=== PATIENT | female | born 1975 | race American Indian/Alaskan Native ===

== ENCOUNTER 2016-10-16 23:20 | Emergency (ER) | payer MEDICARE ==
[2016-10-16 23:29] VITALS: BP 132/88
== END 2016-10-17 04:55 | disposition home or self-care (01) ==
LOC: ED 23:20
DX: R21 Rash and other nonspecific skin eruption (principal)
CPT/HCPCS: 99282

== ENCOUNTER 2017-06-25 23:32 | Emergency (ER) | payer MEDICARE ==
[2017-06-26 04:23] LABS: Bilirubin,Urine NEG (Negative); Blood,Urine NEG (Negative); Color,Urine Yellow (Yellow); Nitrite,Urine NEG (Negative); Protein,Urine <15 mg/dL mg/dL (Negative); Urobilinogen,Urine < 2.0 mg/dL (<2.0); WBC,Urine < 1.0 /HPF (0.0-6.0)
[2017-06-26 04:27] LABS: HCG Qualitative,Urine Negative (Negative)
[2017-06-26] MEDS ORDERED: TYLENOL/CODEINE PO ONE (04:50)
--- NOTE | 2017-06-26 04:59 | Emergency Department Report ---
HPI - General Chief Complaint: Upper Respiratory Infection Time Seen by Provider: 06/26/17 04:25 - HPI HPI: She is a 42-year-old female presents to the ED complaining of intermittent try, nonproductive cough and times one day. Patient denies feverchills/nausea vomiting. Patient also states she noticed some bites on her arms and so some bedbugs in her bed earlier this morning. Patient also states that she has had a mild dysuria, she denies vaginal bleeding, vaginal discharge. ED Past Medical Hx - Past Medical History Previous Medical History?: No - Surgical History Past Surgical History?: No - Social History Smoking Status: Never Smoker Substance Use Type: None - Medications Home Medications: Home Medications Medication Instructions Recorded Confirmed Last Taken Type Benzonatate [Tessalon Perles] 100 mg PO Q8HR #20 capsule 06/26/17 Unknown Rx Diphenhydramine HCl/Zinc Acet 1 applic TP TID #1 tube 06/26/17 Unknown Rx [Benadryl Itch Stopping Crm] diphenhydrAMINE [Benadryl CAP] 25 mg PO QHS PRN #20 capsule 06/26/17 Unknown Rx guaiFENesin [Robitussin] 200 mg PO Q6HR #80 ml 06/26/17 Unknown Rx ED Review of Systems ROS: Stated complaint: URI SX Other details as noted in HPI Constitutional: denies: chills, fever Eyes: denies: eye pain, eye discharge, vision change ENT: denies: ear pain, throat pain Respiratory: denies: cough, shortness of breath, wheezing Cardiovascular: denies: chest pain, palpitations Endocrine: no symptoms reported Gastrointestinal: denies: abdominal pain, nausea, diarrhea Genitourinary: denies: urgency, dysuria, discharge Musculoskeletal: denies: back pain, joint swelling, arthralgia Skin: denies: rash, lesions Neurological: denies: headache, weakness, paresthesias Psychiatric: denies: anxiety, depression Hematological/Lymphatic: denies: easy bleeding, easy bruising Physical Exam - Physical Exam Vital Signs: Vital Signs 06/26/17 00:36 Temperature 99.2 F Pulse Rate 85 Respiratory 20 Rate Blood Pressure 156/108 O2 Sat by Pulse 100 Oximetry Physical Exam: GENERAL: Alert and oriented x3, no apparent distress, Normal Gait, atraumatic. EARS: symetrical, atraumatic, non tender, ear canal clear and moderate cerumen, tympanic membrance non inflamed. gross auditory nml bilaterally. NOSE: Nose symetrical, Nontender,Nares appeared normal. MOUTH:Mouth is well hydrated and without lesions. Tonsils nonerythematous or swollen, Uvula midline, Tongue not elevated. Mucous membranes are moist. Posterior pharynx clear, no exudate or lesions. Patent airways. NECK: Supple. Non edematous, No lymphadenopathy or thyromegaly. No C-spine tenderness LUNGS: Symetrical with respiration, No wheezing, no rales or crackles, CTAB. HEART: S1, S2 present, regular rate and rhythm without murmur, no rubs, no gallops. Non tender to palpation NEUROLOGIC: The patient is cooperative with no focal neurologic deficits. Normal speech. Normal sensation in bilateral upper and lower extremities, No loss of sensation, SKIN: Warm and dry, 2-3, pinpoint, generalized, erythematous lesions on right arm ,No other lesions, No ulceration or induration present. ED Course Vital Signs 06/26/17 00:36 Temperature 99.2 F Pulse Rate 85 Respiratory 20 Rate Blood Pressure 156/108 O2 Sat by Pulse 100 Oximetry ED Medical Decision Making - Medical Decision Making 42-year-old female presents to bronchitis and bed bug bites ED course: Patient received Tylenol with Codeine to help with coughing. Urinalysis was negative. I discussed this findings with the patient. I discussed the patient wash all sheets and clothes. I discussed with the patient to follow up with primary care physician. I also discussed with the patient to return back to the ED if any worsening symptoms or new symptoms arise. Vital signs are normal. Patient had no difference in the ED. She is in no acute or respiratory distress. Critical care attestation.: If time is entered above; I have spent that time in minutes in the direct care of this critically ill patient, excluding procedure time. ED Disposition Clinical Impression: Bronchitis Bed bug bite Qualifiers: Encounter type: initial encounter Qualified Code(s): W57.XXXA - Bitten or stung by nonvenomous insect and other nonvenomous arthropods, initial encounter Disposition: - TO HOME OR SELFCARE Is pt being admited?: No Does the pt Need Aspirin: No Condition: Stable Instructions: Insect Bite or Sting (ED), Chronic Bronchitis (ED) Additional Instructions: Make sure to follow up with the primary care physician as discussed. Take all your medications as you've been prescribed. If you have any worsening symptoms or develop new symptoms please return to ED immediately. Wash all sheets with warm water. Prescriptions: diphenhydrAMINE [Benadryl CAP] 25 mg PO QHS PRN #20 capsule PRN Reason: Itching Benzonatate [Tessalon Perles] 100 mg PO Q8HR #20 capsule Diphenhydramine HCl/Zinc Acet [Benadryl Itch Stopping Crm] 1 applic TP TID #1 tube guaiFENesin [Robitussin] 200 mg PO Q6HR #80 ml Referrals: PRIMARY CARE, [Primary Care Provider] - 3-5 Days Forms: Work/School Release Form(ED) Time of Disposition: 05:41
[2017-06-26 06:19] VITALS: BP 145/99
== END 2017-06-26 06:17 | disposition home or self-care (01) ==
LOC: ED 23:32
DX: J40 Bronchitis, not specified as acute or chronic (principal); S40.861A Insect bite (nonvenomous) of right upper arm, initial encounter; S40.862A Insect bite (nonvenomous) of left upper arm, initial encounter; W57.XXXA Bitten or stung by nonvenomous insect and other nonvenomous arthropods, initial encounter; Y93.89 Activity, other specified; Y92.89 Other specified places as the place of occurrence of the external cause; Y99.8 Other external cause status
CPT/HCPCS: 81001; 81025; 99283

== ENCOUNTER 2017-07-17 00:10 | Emergency (ER) | payer MEDICARE ==
[2017-07-17 01:16] VITALS: BP 173/103
[2017-07-17] MEDS ORDERED: MOTRIN PO ONE (10:15)
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
== END 2017-07-17 10:34 | disposition home or self-care (01) ==
LOC: ED 00:10
DX: S39.012A Strain of muscle, fascia and tendon of lower back, initial encounter (principal); V49.59XA Passenger injured in collision with other motor vehicles in traffic accident, initial encounter; Y93.89 Activity, other specified; Y92.89 Other specified places as the place of occurrence of the external cause; Y99.8 Other external cause status
CPT/HCPCS: 99282

== ENCOUNTER 2020-05-16 15:17 | Emergency (ER) | payer MEDICARE ==
[2020-05-16 15:30] VITALS: BP 138/68
--- NOTE | 2020-05-16 16:57 | Emergency Department Report ---
ED Fall HPI - General Chief Complaint: Fall Stated Complaint: SLIP INJURY PAIN Time Seen by Provider: 05/16/20 16:50 Source: patient Mode of arrival: Ambulatory - History of Present Illness Initial Comments: Patient is a 44-year-old female presents emergency room after a slip and fall that occurred earlier today. She is complaining of neck pain and lower back pain. She denies any loss of consciousness, hitting her head, vision changes, numbness, weakness, bowel or bladder incontinence. She denies any past medical history. No allergies to medications. She states her last menstrual cycle was last week. - Related Data Previous Rx's Medication Instructions Recorded Last Taken Type Benzonatate [Tessalon Perles] 100 mg PO Q8HR #20 capsule 06/26/17 Unknown Rx Diphenhydramine HCl/Zinc Acet 1 applic TP TID #1 tube 06/26/17 Unknown Rx [Benadryl Itch Stopping Crm] diphenhydrAMINE [Benadryl CAP] 25 mg PO QHS PRN #20 capsule 06/26/17 Unknown Rx guaiFENesin [Robitussin] 200 mg PO Q6HR #80 ml 06/26/17 Unknown Rx Cyclobenzaprine [Flexeril] 10 mg PO QHS PRN #7 tablet 07/17/17 Unknown Rx Ibuprofen [Motrin] 600 mg PO Q8H PRN #30 tablet 07/17/17 Unknown Rx Naproxen [EC-Naproxen] 500 mg PO BID PRN #14 tablet. 05/16/20 Unknown Rx Allergies Allergy/AdvReac Type Severity Reaction Status Date / Time No Known Allergies Allergy Verified 12/29/15 12:44 ED Review of Systems ROS: Stated complaint: SLIP INJURY PAIN Other details as noted in HPI Comment: All other systems reviewed and negative ED Past Medical Hx - Past Medical History Previous Medical History?: No - Surgical History Past Surgical History?: No - Social History Smoking Status: Never Smoker Substance Use Type: None - Medications Home Medications: Home Medications Medication Instructions Recorded Confirmed Last Taken Type Benzonatate [Tessalon Perles] 100 mg PO Q8HR #20 capsule 06/26/17 Unknown Rx Diphenhydramine HCl/Zinc Acet 1 applic TP TID #1 tube 06/26/17 Unknown Rx [Benadryl Itch Stopping Crm] diphenhydrAMINE [Benadryl CAP] 25 mg PO QHS PRN #20 capsule 06/26/17 Unknown Rx guaiFENesin [Robitussin] 200 mg PO Q6HR #80 ml 06/26/17 Unknown Rx Cyclobenzaprine [Flexeril] 10 mg PO QHS PRN #7 tablet 07/17/17 Unknown Rx Ibuprofen [Motrin] 600 mg PO Q8H PRN #30 tablet 07/17/17 Unknown Rx Naproxen [EC-Naproxen] 500 mg PO BID PRN #14 tablet. 05/16/20 Unknown Rx ED Physical Exam - General Limitations: No Limitations General appearance: alert, in no apparent distress - Head Head exam: Present: atraumatic, normocephalic - Eye Eye exam: Present: normal appearance - ENT ENT exam: Present: mucous membranes moist - Neck Neck exam: Present: normal inspection, tenderness (bilateral C-spine paraspinal muscular ttp, no midline C-spine ttp, no step offs, no deformities), full ROM - Respiratory Respiratory exam: Present: normal lung sounds bilaterally. Absent: respiratory distress, wheezes, rales, rhonchi, stridor, chest wall tenderness, accessory muscle use, decreased breath sounds, prolonged expiratory - Cardiovascular Cardiovascular Exam: Present: regular rate, normal rhythm, normal heart sounds. Absent: systolic murmur, diastolic murmur, rubs, gallop - Extremities Exam Extremities exam: Present: normal inspection, full ROM, normal capillary refill. Absent: tenderness, pedal edema, joint swelling, calf tenderness - Back Exam Back exam: Present: normal inspection, full ROM, paraspinal tenderness (bilateral lumbar paraspinal muscular ttp, no midline C-spine, T-spine or L- spine ttp, no step offs, no deformities). Absent: vertebral tenderness - Neurological Exam Neurological exam: Present: alert, oriented X3 - Psychiatric Psychiatric exam: Present: normal affect, normal mood - Skin Skin exam: Present: warm, dry, intact ED Course Vital Signs 05/16/20 15:21 Pulse Rate 90 Respiratory 20 Rate Blood Pressure 138/68 [Right] O2 Sat by Pulse 98 Oximetry ED Medical Decision Making - Radiology Data Radiology results: report reviewed Ordering Physician: JOSE NAZARIO Date of Service: 05/16/20 Procedure(s): XR spine lumbosacral 2-3V Accession Number(s): [id number] cc: JOSE NAZARIO Fluoro Time In Minutes: XR spine lumbosacral 2-3V INDICATION / CLINICAL INFORMATION: slip and fall, low back pain COMPARISON: None available. FINDINGS: BONES / JOINT(S): Lumbar spinal alignment is preserved. Vertebral body heights are intact. There is no acute fracture. Mild/moderate disc space height loss at L5-S1. There is moderate lower lumbar facet arthropathy. SOFT TISSUES: No significant abnormality. ADDITIONAL FINDINGS: None. IMPRESSION: Mild/moderate lower lumbar spondylosis, without acute process identified. Signer Name: Dolly Soto MD Signed: 05/16/2020 5:31 PM Workstation Name: [id number] Transcribed By: TROY Dictated By: DOLLY SOTO MD Electronically Authenticated By: DOLLY SOTO MD Signed Date/Time: 05/16/201730 DD/ 29 TD/TT: Ordering Physician: JOSE NAZARIO Date of Service: 05/16/20 Procedure(s): XR spine cervical 2-3V Accession Number(s): [id number] cc: JOSE NAZARIO Fluoro Time In Minutes: XR spine cervical 2-3V INDICATION / CLINICAL INFORMATION: slip and fall, neck pain COMPARISON: None available. FINDINGS: BONES / JOINT(S): There is severe disc space height loss and degenerative retrolisthesis of C5 on C6. Cervical spinal alignment is otherwise preserved. Other cervical spine disc spaces are largely preserved. There is at least moderate multilevel uncovertebral and facet joint degenerative changes throughout the cervical spine. No evidence of acute fracture. SOFT TISSUES: No significant abnormality. ADDITIONAL FINDINGS: None. IMPRESSION: Severe degenerative changes of C5-C6 without acute process identified. Signer Name: Dolly Soto MD Signed: 05/16/2020 5:22 PM Workstation Name: [id number] Transcribed By: TROY Dictated By: DOLLY SOTO MD Electronically Authenticated By: DOLLY SOTO MD Signed Date/Time: 05/16/201721 DD/ 20 TD/TT: - Medical Decision Making Patient is a 44-year-old female presents emergency room after a slip and fall that occurred earlier today. She is complaining of neck pain and lower back pain. She denies any loss of consciousness, hitting her head, vision changes, numbness, weakness, bowel or bladder incontinence. She denies any past medical history. No allergies to medications. She states her last menstrual cycle was last week. VSS. on exam:bilateral lumbar paraspinal muscular ttp, no midline C- spine, T-spine or L-spine ttp, no step offs, no deformities, bilateral C-spine paraspinal muscular ttp, no midline C-spine ttp, no step offs, no deformities, no focal neuro deficits. XR lumbar spine: Mild/moderate lower lumbar spondylosis, without acute process identified. XR c-spine: Severe degenerative changes of C5-C6 without acute process identified. Discussed all findings with patient and answered questions. Examination most consistent with a mild muscle strain. Patient has had no significant mechanism of trauma, do not suspect acute emergent traumatic injury. pt given prescription for naproxen. advised pt Please take medication as prescribed as needed. May use ice pack, heating pad, rest, Epson salt bath. Follow-up with your primary care doctor for reexamination. Return to emergency room for any new or worsening symptoms. - Differential Diagnosis Strain, sprain, fracture, dislocation, DDD, bulging disc, spondylosis Critical care attestation.: If time is entered above; I have spent that time in minutes in the direct care of this critically ill patient, excluding procedure time. ED Disposition Clinical Impression: Fall Qualifiers: Encounter type: initial encounter Qualified Code(s): W19.XXXA - Unspecified fall, initial encounter Cervical strain Qualifiers: Encounter type: initial encounter Qualified Code(s): S16.1XXA - Strain of muscle, fascia and tendon at neck level, initial encounter Lumbar strain Qualifiers: Encounter type: initial encounter Qualified Code(s): S39.012A - Strain of muscle, fascia and tendon of lower back, initial encounter Disposition: - TO HOME OR SELFCARE Is pt being admited?: No Does the pt Need Aspirin: No Condition: Stable Instructions: Lumbar Sprain, Muscle Strain, [id number] Additional Instructions: Please take medication as prescribed as needed. May use ice pack, heating pad, rest, Epson salt bath. Follow-up with your primary care doctor for reexamination. Return to emergency room for any new or worsening symptoms. Your x-ray shows no signs of fracture or dislocation, just shows arthritis which comes as we age, symptoms most likely related to muscle strain Prescriptions: Naproxen [EC-Naproxen] 500 mg PO BID PRN #14 tablet.dr SALDANA Reason: pain Referrals: KRYSTAL MARIA MD [Staff Physician] - 2-3 Days PRIMARY CARE, [Primary Care Provider] - 2-3 Days [facility] [Provider Group] - 2-3 Days Time of Disposition: 17:40 Print Language: ICELANDIC
--- NOTE | 2020-05-16 17:27 | XRay Report ---
XR spine cervical 2-3V INDICATION / CLINICAL INFORMATION: slip and fall, neck pain COMPARISON: None available. FINDINGS: BONES / JOINT(S): There is severe disc space height loss and degenerative retrolisthesis of C5 on C6. Cervical spinal alignment is otherwise preserved. Other cervical spine disc spaces are largely prese rved. There is at least moderate multilevel uncovertebral and facet joint degenerative changes throug hout the cervical spine. No evidence of acute fracture. SOFT TISSUES: No significant abnormality. ADDITIONAL FINDINGS: None. IMPRESSION: Severe degenerative changes of C5-C6 without acute process identified. Signer Name: Butch Soto MD Signed: 05/16/2020 5:22 PM Workstation Name: [id number]
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
[2020-05-16] MEDS ORDERED: IBUPROFEN 600 MG TAB PO ONE ×2 (18:02)
== END 2020-05-16 17:57 | disposition home or self-care (01) ==
LOC: ED 15:17
DX: S16.1XXA Strain of muscle, fascia and tendon at neck level, initial encounter (principal); S39.012A Strain of muscle, fascia and tendon of lower back, initial encounter; Z79.1 Long term (current) use of non-steroidal anti-inflammatories (NSAID); Z79.899 Other long term (current) drug therapy; W01.0XXA Fall on same level from slipping, tripping and stumbling without subsequent striking against object, initial encounter; Y93.89 Activity, other specified; Y92.89 Other specified places as the place of occurrence of the external cause; Y99.8 Other external cause status
CPT/HCPCS: 72040; 72100

== ENCOUNTER 2021-12-16 23:33 | Inpatient (IN) | payer OTHER, MEDICARE ==
[2021-12-17] MEDS ORDERED: SODIUM CHLORIDE 0.9% 1000 ML 1,000 ML IV ONE (07:57)
[2021-12-17] MEDS ORDERED: MORPHINE 4 MG/1 ML INJ IV ONE ×2 (07:57→10:20)
[2021-12-17] MEDS ORDERED: ONDANSETRON 4 MG/2 ML INJ IV ONE (07:57)
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
[2021-12-17 09:11] LABS: Basophils % (Auto) 0.7 % (0.0-1.8); Eosinophils % (Auto) 0.7 % (0.0-4.3); Hematocrit 36.3 % (30.3-42.9); Hemoglobin 12.5 gm/dl (10.1-14.3); Lymphocytes # (Auto) 1.9 K/mm3 (1.2-5.4); Mean Corpuscular HGB Conc 35 % (30-34); Mean Corpuscular Volume 90 fl (79-97); Monocytes # (Auto) 0.5 K/mm3 (0.0-0.8); Monocytes % (Auto) 9.9 % (0.0-7.3); Platelet Count 235 K/mm3 (140-440); Red Blood Count 4.04 M/mm3 (3.65-5.03); Red Cell Distribution Width 12.5 % (13.2-15.2)
[2021-12-17 09:20] LABS: INR 0.85 (0.87-1.13)
[2021-12-17 09:21] LABS: Partial Thromboplastin Time 33.4 Sec. (24.2-36.6)
[2021-12-17 09:55] LABS: Alanine Aminotransferase 29 units/L (7-56); Albumin 4.7 g/dL (3.9-5); BUN/Creatinine Ratio 14; Blood Urea Nitrogen 10 mg/dL (7-17); Calcium 10.3 mg/dL (8.4-10.2); Hemolysis Index 1
[2021-12-17 10:44] LABS: Bilirubin,Urine NEG (Negative); Blood,Urine SM (Negative); Color,Urine Straw (Yellow); Protein,Urine <15 mg/dL mg/dL (Negative); Urobilinogen,Urine < 2.0 mg/dL (<2.0)
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
--- NOTE | 2021-12-17 15:23 | Electrocardiograph Report ---
[facility] Test Date: 2021-12-17 Test Time: 10:57:58 Pat Name: SABINO MANNING Department: Room: Gender: F [employer]: TECH : 1975 Requested By: YOAV PARKER Order Number: [id number] Reading MD: Eduardo Pierce Measurements Intervals [place] Rate: 86 P: 25 NH: 136 QRS: -18 QRSD: 84 T: 31 QT: 352 QTc: 422 Interpretive Statements Sinus rhythm No previous ECG available for comparison Electronically Signed On 12-17-2021 15:23:13 EDT by Eduardo Pierce
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
[2021-12-17] MEDS ORDERED: oxyCODONE /ACETAMINOPHEN 5-325MG TAB PO PRN (18:35)
[2021-12-17] MEDS ORDERED: ONDANSETRON 4 MG/2 ML INJ IV PRN (18:35)
[2021-12-17] MEDS ORDERED: ACETAMINOPHEN 325 MG TAB PO PRN (18:35)
[2021-12-17] MEDS ORDERED: diphenhydrAMINE 25 MG CAP PO PRN (18:40)
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
[2021-12-17] MEDS: MORPHINE 2 MG/1 ML INJ IV PRN (21:22)
[2021-12-17] MEDS: guaiFENesin 100 MG/5 ML ORAL LIQD PO SCH ×2 (21:22→23:57)
[2021-12-17] MEDS ORDERED: HYDROmorphone 0.5 MG/0.5 ML INJ IV PRN (21:45)
[2021-12-18] MEDS: BENZONATATE 100 MG CAP PO SCH ×3 (05:46→21:43)
[2021-12-18] MEDS: guaiFENesin 100 MG/5 ML ORAL LIQD PO SCH ×4 (05:46→23:33)
[2021-12-18 06:26] LABS: Basophils % (Auto) 0.7 % (0.0-1.8); Eosinophils % (Auto) 0.9 % (0.0-4.3); Hematocrit 34.9 % (30.3-42.9); Hemoglobin 12.2 gm/dl (10.1-14.3); Lymphocytes # (Auto) 1.5 K/mm3 (1.2-5.4); Lymphocytes % (Auto) 40.1 % (13.4-35.0); Mean Corpuscular HGB Conc 35 % (30-34); Mean Corpuscular Volume 89 fl (79-97); Monocytes # (Auto) 0.4 K/mm3 (0.0-0.8); Monocytes % (Auto) 10.3 % (0.0-7.3); Platelet Count 244 K/mm3 (140-440); Red Blood Count 3.92 M/mm3 (3.65-5.03); Red Cell Distribution Width 12.4 % (13.2-15.2)
[2021-12-18 06:44] LABS: Alanine Aminotransferase 25 units/L (7-56); Blood Urea Nitrogen 10 mg/dL (7-17); Calcium 9.6 mg/dL (8.4-10.2); Hemolysis Index 1
[2021-12-18 06:48] LABS: BUN/Creatinine Ratio 14
--- NOTE | 2021-12-18 09:56 | Cat Scan Report ---
CT CHEST WITHOUT CONTRAST INDICATION / CLINICAL INFORMATION: Pneumothorax: Hemothorax and rib fractures. TECHNIQUE: Axial CT images were obtained through the chest without contrast. All CT scans at this [facility] are performed using CT dose reduction for ALARA by means of automated exposure control. COMPARISON: 12/17/2021 FINDINGS: HEART: No significant abnormality. CORONARY ARTERY CALCIFICATION: None. THORACIC AORTA: No significant abnormality. MEDIASTINUM / ADINA: No significant abnormality. PLEURA: There is slight increase in a right-sided hemothorax. Improved right-sided pneumothoraces as compared to previous CT. There is slight right-sided residual pneumothorax along the anterior lower a spect as well as the apical region. LUNGS: Subsegmental atelectasis is noted within the right middle lobe and lingula. There is increased atelectasis within the right lung base. ADDITIONAL FINDINGS: None. UPPER ABDOMEN: No significant abnormality. SKELETAL SYSTEM: Redemonstrated mild to moderate displaced fractures of the right second through sixt h ribs. IMPRESSION: 1. Slight increase in right-sided hemothorax as compared to previous CT. There is improved appearance of several trace right-sided pneumothoraces. No significant change in right-sided rib fractures. COMMUNICATION Time of Communication ([employer]/CDT): 8:30 AM Licensed Practitioner Receiving Report: Dr. Melchor Signer Name: Owen Briones DO Signed: 12/18/2021 9:51 AM Workstation Name: [id number]
--- NOTE | 2021-12-18 11:02 | Progress Note ---
Subjective Date of service: 12/18/21 Patient Reports: Positive: no new complaints, feels better, still having pain Objective Vital Signs - 12hr 12/17/21 12/18/21 12/18/21 23:05 00:00 00:54 Temperature 98.0 F Pulse Rate 76 86 Respiratory 16 Rate Blood Pressure 145/87 [Right] O2 Sat by Pulse 94 99 Oximetry 12/18/21 03:20 Temperature 98.1 F Pulse Rate 91 H Respiratory 18 Rate Blood Pressure 138/81 [Right] O2 Sat by Pulse 99 Oximetry - Labs 12/18/21 05:43 12/18/21 05:43 Diabetes panel 12/18/21 Range/Units 05:43 Sodium 140 (137-145) mmol/L Potassium 4.2 (3.6-5.0) mmol/L Chloride 102.2 (98-107) mmol/L Carbon Dioxide 27 (22-30) mmol/L BUN 10 (7-17) mg/dL Creatinine 0.7 (0.6-1.2) mg/dL Glucose 111 H (65-100) mg/dL Calcium 9.6 (8.4-10.2) mg/dL AST 27 (5-40) units/L ALT 25 (7-56) units/L Alkaline Phosphatase 76 (35-129) units/L Total Protein 8.1 (6.3-8.2) g/dL Albumin 4.0 (3.9-5) g/dL Calcium panel 12/18/21 Range/Units 05:43 Calcium 9.6 (8.4-10.2) mg/dL Albumin 4.0 (3.9-5) g/dL Pituitary panel 12/18/21 Range/Units 05:43 Sodium 140 (137-145) mmol/L Potassium 4.2 (3.6-5.0) mmol/L Chloride 102.2 (98-107) mmol/L Carbon Dioxide 27 (22-30) mmol/L BUN 10 (7-17) mg/dL Creatinine 0.7 (0.6-1.2) mg/dL Glucose 111 H (65-100) mg/dL Calcium 9.6 (8.4-10.2) mg/dL Adrenal panel 12/18/21 Range/Units 05:43 Sodium 140 (137-145) mmol/L Potassium 4.2 (3.6-5.0) mmol/L Chloride 102.2 (98-107) mmol/L Carbon Dioxide 27 (22-30) mmol/L BUN 10 (7-17) mg/dL Creatinine 0.7 (0.6-1.2) mg/dL Glucose 111 H (65-100) mg/dL Calcium 9.6 (8.4-10.2) mg/dL Total Bilirubin 0.40 (0.1-1.2) mg/dL AST 27 (5-40) units/L ALT 25 (7-56) units/L Alkaline Phosphatase 76 (35-129) units/L Total Protein 8.1 (6.3-8.2) g/dL Albumin 4.0 (3.9-5) g/dL
[2021-12-18] MEDS: oxyCODONE /ACETAMINOPHEN 5-325MG TAB PO PRN ×3 (11:05→22:16)
[2021-12-18] MEDS: CYCLOBENZAPRINE 10 MG TAB PO PRN (11:05)
--- NOTE | 2021-12-18 11:51 | XRay Report ---
XR Chest 3V INDICATION / CLINICAL INFORMATION: Right pneumothorax. COMPARISON: CT from 12/18/2021 FINDINGS: SUPPORT DEVICES: None. HEART /PULMONARY VASCULATURE: No significant abnormality. LUNGS / PLEURA: Small right basilar pleural fluid/hemothorax is unchanged. Trace right pneumothorax i s visualized on left lateral decubitus image, unchanged. Left lung remains clear. ADDITIONAL FINDINGS: No significant additional findings. IMPRESSION: Stable small right hemothorax and trace right pneumothorax. Signer Name: Butch Soto MD Signed: 12/18/2021 11:41 AM Workstation Name: [email or web address]
--- NOTE | 2021-12-18 19:50 | Progress Note ---
Assessment and Plan - Patient Problems (1) Pneumothorax on right Current Visit: Yes Status: Acute Plan to address problem: Surgery team consulted, submental oxygen, incentive spirometry, supportive care, (2) Obesity hypoventilation syndrome Current Visit: Yes Status: Acute Plan to address problem: Balanced diet, increase physical activity discharge, outpatient pulmonary follow-up for sleep study. (3) Multiple fractures of ribs Current Visit: Yes Status: Acute Qualifiers: Encounter type: initial encounter Fracture type: closed Laterality: right Qualified Code(s): S22.41XA - Multiple fractures of ribs, right side, initial encounter for closed fracture Plan to address problem: Pain control, supportive care. (4) DVT prophylaxis Current Visit: Yes Status: Acute Plan to address problem: SCD to bilateral lower extremities while in bed, early ambulation. (5) Advance care planning Current Visit: Yes Status: Acute Plan to address problem: Disease education done, care plan discussed, diagnoses discussed, prognosis discussed, patient knowledges understanding and agreement with care plan, +30 minutes. (6) Preventative health care Current Visit: Yes Status: Acute Plan to address problem: Patient counseled regarding balanced diet, meal planning, weight reduction, follow-up with primary care physician for all age and risk factor appropriate screening test. History Interval history: 46-year-old female hospital day 3 with right pneumothorax. Surgery team consulted. Patient resting comfortably in bed. No reported nursing events. Patient denies shortness of breath, patient acknowledges pain to rib cage. Hospitalist Physical - Constitutional Vitals: Temp Pulse Resp BP Pulse Ox 98.1 F 89 18 138/81 99 12/18/21 03:20 12/18/21 08:00 12/18/21 03:20 12/18/21 03:20 12/18/21 12:00 General appearance: Present: mild distress, well-nourished, obese - EENT Eyes: Present: PERRL ENT: hearing intact - Neck Neck: Present: supple - Respiratory Respiratory effort: normal Respiratory: right: diminished - Cardiovascular Rhythm: regular Heart Sounds: Present: S1 & S2 - Extremities Extremities: no ischemia Peripheral Pulses: within normal limits - Abdominal General gastrointestinal: soft, non-tender, non-distended - Integumentary Integumentary: Present: clear, dry - Psychiatric Psychiatric: appropriate mood/affect, cooperative - Neurologic Neurologic: CNII-XII intact HEART Score - HEART Score Troponin: Troponin T < 0.010 ng/mL (0.00-0.029) 12/17/21 08:50 Results - Labs CBC & Chem 7: 12/18/21 05:43 12/18/21 05:43 Labs: Laboratory Last Values WBC 3.8 K/mm3 (4.5-11.0) L 12/18/21 05:43 RBC 3.92 M/mm3 (3.65-5.03) 12/18/21 05:43 Hgb 12.2 gm/dl (10.1-14.3) 12/18/21 05:43 Hct 34.9 % (30.3-42.9) 12/18/21 05:43 MCV 89 fl (79-97) 12/18/21 05:43 MCH 31 pg (28-32) 12/18/21 05:43 MCHC 35 % (30-34) H 12/18/21 05:43 RDW 12.4 % (13.2-15.2) L 12/18/21 05:43 Plt Count 244 K/mm3 (140-440) 12/18/21 05:43 Lymph % (Auto) 40.1 % (13.4-35.0) H 12/18/21 05:43 [place] % (Auto) 10.3 % (0.0-7.3) H 12/18/21 05:43 Eos % (Auto) 0.9 % (0.0-4.3) 12/18/21 05:43 Baso % (Auto) 0.7 % (0.0-1.8) 12/18/21 05:43 Lymph # (Auto) 1.5 K/mm3 (1.2-5.4) 12/18/21 05:43 [place] # (Auto) 0.4 K/mm3 (0.0-0.8) 12/18/21 05:43 Eos # (Auto) 0.0 K/mm3 (0.0-0.4) 12/18/21 05:43 Baso # (Auto) 0.0 K/mm3 (0.0-0.1) 12/18/21 05:43 Seg Neutrophils % 48.0 % (40.0-70.0) 12/18/21 05:43 Seg Neutrophils # 1.8 K/mm3 (1.8-7.7) 12/18/21 05:43 PT 12.5 Sec. (12.2-14.9) 12/17/21 08:50 INR 0.85 (0.87-1.13) L 12/17/21 08:50 APTT 33.4 Sec. (24.2-36.6) 12/17/21 08:50 Sodium 140 mmol/L (137-145) 12/18/21 05:43 Potassium 4.2 mmol/L (3.6-5.0) 12/18/21 05:43 Chloride 102.2 mmol/L (98-107) 12/18/21 05:43 Carbon Dioxide 27 mmol/L (22-30) 12/18/21 05:43 Anion Gap 15 mmol/L 12/18/21 05:43 BUN 10 mg/dL (7-17) 12/18/21 05:43 Creatinine 0.7 mg/dL (0.6-1.2) 12/18/21 05:43 Estimated GFR > 60 ml/min 12/18/21 05:43 BUN/Creatinine Ratio 14 % 12/18/21 05:43 Glucose 111 mg/dL (65-100) H 12/18/21 05:43 POC Glucose 135 mg/dL (70-105) H 12/18/21 16:13 Calcium 9.6 mg/dL (8.4-10.2) 12/18/21 05:43 Total Bilirubin 0.40 mg/dL (0.1-1.2) 12/18/21 05:43 AST 27 units/L (5-40) 12/18/21 05:43 ALT 25 units/L (7-56) 12/18/21 05:43 Alkaline Phosphatase 76 units/L (35-129) 12/18/21 05:43 Troponin T < 0.010 ng/mL (0.00-0.029) 12/17/21 08:50 Total Protein 8.1 g/dL (6.3-8.2) 12/18/21 05:43 Albumin 4.0 g/dL (3.9-5) 12/18/21 05:43 Albumin/Globulin Ratio 1.0 % 12/18/21 05:43 Lipase 25 units/L (13-60) 12/17/21 08:50 HCG, Qual Negative (Negative) 12/17/21 08:50 Urine Color Straw (Yellow) 12/17/21 Unknown Urine Turbidity Clear (Clear) 12/17/21 Unknown Urine pH 6.0 (5.0-7.0) 12/17/21 Unknown Ur Specific [place] 1.023 (1.003-1.030) 12/17/21 Unknown Urine Protein <15 mg/dl mg/dL (Negative) 12/17/21 Unknown Urine Glucose (UA) Neg mg/dL (Negative) 12/17/21 Unknown Urine Ketones Neg mg/dL (Negative) 12/17/21 Unknown Urine Blood Sm (Negative) 12/17/21 Unknown Urine Nitrite Neg (Negative) 12/17/21 Unknown Urine Bilirubin Neg (Negative) 12/17/21 Unknown Urine Urobilinogen < 2.0 mg/dL (<2.0) 12/17/21 Unknown Ur Leukocyte Esterase Neg (Negative) 12/17/21 Unknown Urine WBC (Auto) 1.0 /HPF (0.0-6.0) 12/17/21 Unknown Urine RBC (Auto) 1.0 /HPF (0.0-6.0) 12/17/21 Unknown U Epithel Cells (Auto) 3.0 /HPF (0-13.0) 12/17/21 Unknown Rangel/IV: Voiding Method Bedside Commode Active Medications - Current Medications Current Medications: Generic Name Dose Route Start Last Admin Trade Name Freq PRN Reason Stop Dose Admin Acetaminophen 650 mg 12/17/21 18:35 Acetaminophen 325 Mg Tab PO Q4H PRN Pain MILD(1-3)/Fever >100.5/WOLFE Benzonatate 100 mg 12/17/21 22:00 12/18/21 14:00 Benzonatate 100 Mg Cap PO Not Given Q8HR DAVID Cyclobenzaprine HCl 10 mg 12/17/21 18:40 12/18/21 11:05 Cyclobenzaprine 10 Mg Tab PO 10 mg QHS PRN Administration Muscle Spasm Diphenhydramine HCl 25 mg 12/17/21 18:40 Diphenhydramine 25 Mg Cap PO QHS PRN Itching Guaifenesin 200 mg 12/17/21 19:00 12/18/21 18:37 Guaifenesin 100 Mg/5 Ml Oral Liqd PO 200 mg Q6HR DAVID Administration Hydromorphone HCl 0.5 mg 12/17/21 21:45 Hydromorphone 0.5 Mg/0.5 Ml Inj IV Q3H PRN Pain , Severe (7-10) Morphine Sulfate 2 mg 12/17/21 18:35 12/17/21 21:22 Morphine 2 Mg/1 Ml Inj IV 2 mg Q4H PRN Administration Pain, Moderate (4-6) Ondansetron HCl 4 mg 12/17/21 18:35 Ondansetron 4 Mg/2 Ml Inj IV Q8H PRN Nausea And Vomiting Oxycodone/Acetaminophen 1 tab 12/18/21 07:00 12/18/21 18:37 Oxycodone /Acetaminophen 5-325mg Tab PO 1 tab Q4H PRN Administration Pain, Moderate (4-6) Sodium Chloride 10 ml 12/17/21 22:00 12/18/21 11:02 Sodium Chloride 0.9% 10 Ml Flush Syringe IV 10 ml BID DAVID Administration Sodium Chloride 10 ml 12/17/21 18:35 Sodium Chloride 0.9% 10 Ml Flush Syringe IV PRN PRN LINE FLUSH
[2021-12-19] MEDS: CYCLOBENZAPRINE 10 MG TAB PO PRN (02:32)
[2021-12-19] MEDS: BENZONATATE 100 MG CAP PO SCH ×3 (05:32→22:06)
[2021-12-19] MEDS: guaiFENesin 100 MG/5 ML ORAL LIQD PO SCH ×3 (05:32→18:59)
[2021-12-19] MEDS: oxyCODONE /ACETAMINOPHEN 5-325MG TAB PO PRN ×3 (05:32→22:07)
[2021-12-19 07:11] LABS: Hematocrit 32.5 % (30.3-42.9); Hemoglobin 11.3 gm/dl (10.1-14.3); Mean Corpuscular HGB Conc 35 % (30-34); Mean Corpuscular Volume 89 fl (79-97); Platelet Count 217 K/mm3 (140-440); Red Blood Count 3.68 M/mm3 (3.65-5.03); Red Cell Distribution Width 12.4 % (13.2-15.2)
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
[2021-12-19] MEDS: MORPHINE 2 MG/1 ML INJ IV PRN (18:31)
[2021-12-19 20:08] VITALS: BP 146/95
--- NOTE | 2021-12-19 20:35 | Progress Note ---
Assessment and Plan - Patient Problems (1) Pneumothorax on right Current Visit: Yes Status: Acute Plan to address problem: Surgery team consulted, submental oxygen, incentive spirometry, supportive care, (2) Obesity hypoventilation syndrome Current Visit: Yes Status: Acute Plan to address problem: Balanced diet, increase physical activity discharge, outpatient pulmonary follow-up for sleep study. (3) Multiple fractures of ribs Current Visit: Yes Status: Acute Qualifiers: Encounter type: initial encounter Fracture type: closed Laterality: right Qualified Code(s): S22.41XA - Multiple fractures of ribs, right side, initial encounter for closed fracture Plan to address problem: Pain control, supportive care. (4) DVT prophylaxis Current Visit: Yes Status: Acute Plan to address problem: SCD to bilateral lower extremities while in bed, early ambulation. (5) Advance care planning Current Visit: Yes Status: Acute Plan to address problem: Disease education done, care plan discussed, diagnoses discussed, prognosis discussed, patient knowledges understanding and agreement with care plan, +30 minutes. (6) Preventative health care Current Visit: Yes Status: Acute Plan to address problem: Patient counseled regarding balanced diet, meal planning, weight reduction, follow-up with primary care physician for all age and risk factor appropriate screening test. History Interval history: 46-year-old female hospital day 4 with right hemo pneumothorax. Surgery team consulted. Patient resting comfortably in bed. No reported nursing events. Patient denies shortness of breath, patient acknowledges pain to rib cage. Hospitalist Physical - Constitutional Vitals: Temp Pulse Resp BP Pulse Ox 98.3 F 100 H 20 146/95 96 12/19/21 20:05 12/19/21 20:05 12/19/21 20:05 12/19/21 20:05 12/19/21 20:05 General appearance: Present: mild distress, well-nourished, obese - EENT Eyes: Present: PERRL ENT: hearing intact - Neck Neck: Present: supple - Respiratory Respiratory effort: normal Respiratory: right: diminished - Cardiovascular Rhythm: regular Heart Sounds: Present: S1 & S2 - Extremities Extremities: no ischemia Peripheral Pulses: within normal limits - Abdominal General gastrointestinal: soft, non-tender, non-distended - Integumentary Integumentary: Present: clear, dry - Psychiatric Psychiatric: cooperative - Neurologic Neurologic: CNII-XII intact HEART Score - HEART Score Troponin: Troponin T < 0.010 ng/mL (0.00-0.029) 12/17/21 08:50 Results - Labs CBC & Chem 7: 12/19/21 05:56 12/18/21 05:43 Labs: Laboratory Last Values WBC 2.9 K/mm3 (4.5-11.0) L 12/19/21 05:56 RBC 3.68 M/mm3 (3.65-5.03) 12/19/21 05:56 Hgb 11.3 gm/dl (10.1-14.3) 12/19/21 05:56 Hct 32.5 % (30.3-42.9) 12/19/21 05:56 MCV 89 fl (79-97) 12/19/21 05:56 MCH 31 pg (28-32) 12/19/21 05:56 MCHC 35 % (30-34) H 12/19/21 05:56 RDW 12.4 % (13.2-15.2) L 12/19/21 05:56 Plt Count 217 K/mm3 (140-440) 12/19/21 05:56 Lymph % (Auto) 40.1 % (13.4-35.0) H 12/18/21 05:43 [place] % (Auto) 10.3 % (0.0-7.3) H 12/18/21 05:43 Eos % (Auto) 0.9 % (0.0-4.3) 12/18/21 05:43 Baso % (Auto) 0.7 % (0.0-1.8) 12/18/21 05:43 Lymph # (Auto) 1.5 K/mm3 (1.2-5.4) 12/18/21 05:43 [place] # (Auto) 0.4 K/mm3 (0.0-0.8) 12/18/21 05:43 Eos # (Auto) 0.0 K/mm3 (0.0-0.4) 12/18/21 05:43 Baso # (Auto) 0.0 K/mm3 (0.0-0.1) 12/18/21 05:43 Seg Neutrophils % 48.0 % (40.0-70.0) 12/18/21 05:43 Seg Neutrophils # 1.8 K/mm3 (1.8-7.7) 12/18/21 05:43 PT 12.5 Sec. (12.2-14.9) 12/17/21 08:50 INR 0.85 (0.87-1.13) L 12/17/21 08:50 APTT 33.4 Sec. (24.2-36.6) 12/17/21 08:50 Sodium 140 mmol/L (137-145) 12/18/21 05:43 Potassium 4.2 mmol/L (3.6-5.0) 12/18/21 05:43 Chloride 102.2 mmol/L (98-107) 12/18/21 05:43 Carbon Dioxide 27 mmol/L (22-30) 12/18/21 05:43 Anion Gap 15 mmol/L 12/18/21 05:43 BUN 10 mg/dL (7-17) 12/18/21 05:43 Creatinine 0.7 mg/dL (0.6-1.2) 12/18/21 05:43 Estimated GFR > 60 ml/min 12/18/21 05:43 BUN/Creatinine Ratio 14 % 12/18/21 05:43 Glucose 111 mg/dL (65-100) H 12/18/21 05:43 POC Glucose 135 mg/dL (70-105) H 12/18/21 16:13 Calcium 9.6 mg/dL (8.4-10.2) 12/18/21 05:43 Total Bilirubin 0.40 mg/dL (0.1-1.2) 12/18/21 05:43 AST 27 units/L (5-40) 12/18/21 05:43 ALT 25 units/L (7-56) 12/18/21 05:43 Alkaline Phosphatase 76 units/L (35-129) 12/18/21 05:43 Troponin T < 0.010 ng/mL (0.00-0.029) 12/17/21 08:50 Total Protein 8.1 g/dL (6.3-8.2) 12/18/21 05:43 Albumin 4.0 g/dL (3.9-5) 12/18/21 05:43 Albumin/Globulin Ratio 1.0 % 12/18/21 05:43 Lipase 25 units/L (13-60) 12/17/21 08:50 HCG, Qual Negative (Negative) 12/17/21 08:50 Urine Color Straw (Yellow) 12/17/21 Unknown Urine Turbidity Clear (Clear) 12/17/21 Unknown Urine pH 6.0 (5.0-7.0) 12/17/21 Unknown Ur Specific [place] 1.023 (1.003-1.030) 12/17/21 Unknown Urine Protein <15 mg/dl mg/dL (Negative) 12/17/21 Unknown Urine Glucose (UA) Neg mg/dL (Negative) 12/17/21 Unknown Urine Ketones Neg mg/dL (Negative) 12/17/21 Unknown Urine Blood Sm (Negative) 12/17/21 Unknown Urine Nitrite Neg (Negative) 12/17/21 Unknown Urine Bilirubin Neg (Negative) 12/17/21 Unknown Urine Urobilinogen < 2.0 mg/dL (<2.0) 12/17/21 Unknown Ur Leukocyte Esterase Neg (Negative) 12/17/21 Unknown Urine WBC (Auto) 1.0 /HPF (0.0-6.0) 12/17/21 Unknown Urine RBC (Auto) 1.0 /HPF (0.0-6.0) 12/17/21 Unknown U Epithel Cells (Auto) 3.0 /HPF (0-13.0) 12/17/21 Unknown Rangel/IV: Voiding Method Bedside Commode Active Medications - Current Medications Current Medications: Generic Name Dose Route Start Last Admin Trade Name Freq PRN Reason Stop Dose Admin Acetaminophen 650 mg 12/17/21 18:35 Acetaminophen 325 Mg Tab PO Q4H PRN Pain MILD(1-3)/Fever >100.5/WOLFE Benzonatate 100 mg 12/17/21 22:00 12/19/21 14:00 Benzonatate 100 Mg Cap PO Not Given Q8HR DAVID Bisacodyl 10 mg 12/19/21 20:16 Bisacodyl 5 Mg Tab PO QDAY PRN Constipation Cyclobenzaprine HCl 10 mg 12/17/21 18:40 12/19/21 02:32 Cyclobenzaprine 10 Mg Tab PO 10 mg QHS PRN Administration Muscle Spasm Diphenhydramine HCl 25 mg 12/17/21 18:40 Diphenhydramine 25 Mg Cap PO QHS PRN Itching Guaifenesin 200 mg 12/17/21 19:00 12/19/21 18:59 Guaifenesin 100 Mg/5 Ml Oral Liqd PO 200 mg Q6HR DAVID Administration Hydromorphone HCl 0.5 mg 12/17/21 21:45 Hydromorphone 0.5 Mg/0.5 Ml Inj IV Q3H PRN Pain , Severe (7-10) Morphine Sulfate 2 mg 12/17/21 18:35 12/19/21 18:31 Morphine 2 Mg/1 Ml Inj IV 2 mg Q4H PRN Administration Pain, Moderate (4-6) Ondansetron HCl 4 mg 12/17/21 18:35 Ondansetron 4 Mg/2 Ml Inj IV Q8H PRN Nausea And Vomiting Oxycodone/Acetaminophen 1 tab 12/18/21 07:00 12/19/21 11:17 Oxycodone /Acetaminophen 5-325mg Tab PO 1 tab Q4H PRN Administration Pain, Moderate (4-6) Sodium Chloride 10 ml 12/17/21 22:00 12/19/21 11:19 Sodium Chloride 0.9% 10 Ml Flush Syringe IV 10 ml BID DAVID Administration Sodium Chloride 10 ml 12/17/21 18:35 Sodium Chloride 0.9% 10 Ml Flush Syringe IV PRN PRN LINE FLUSH
[2021-12-20] MEDS: guaiFENesin 100 MG/5 ML ORAL LIQD PO SCH ×3 (00:38→13:08)
[2021-12-20] MEDS: BENZONATATE 100 MG CAP PO SCH ×3 (06:37→14:51)
[2021-12-20] MEDS: oxyCODONE /ACETAMINOPHEN 5-325MG TAB PO PRN ×2 (06:52→14:51)
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
[2021-12-20] MEDS: MORPHINE 2 MG/1 ML INJ IV PRN (13:08)
--- NOTE | 2021-12-20 14:56 | Discharge Summary ---
Providers - Providers Date of Admission: 12/17/21 18:36 Attending physician: REYNA MARQUEZ 12/17/21 15:27 Consult to Physician [CONS] Routine Comment: Consulting Provider: DESIRE JOHNSON Physician Instructions: Reason For Exam: RIB FRACTURES, PNEUMOTHORAX, HEMOTHORAX Hospitalization Condition: Stable Disposition: 30 STILL A PATIENT - Discharge Diagnoses (1) Pneumothorax on right Status: Acute (2) Obesity hypoventilation syndrome Status: Acute (3) Multiple fractures of ribs Status: Acute Qualifiers: Encounter type: initial encounter Fracture type: closed Laterality: right Qualified Code(s): S22.41XA - Multiple fractures of ribs, right side, initial encounter for closed fracture (4) DVT prophylaxis Status: Acute (5) Advance care planning Status: Acute (6) Preventative health care Status: Acute Exam - Constitutional Vitals: Temp Pulse Resp BP Pulse Ox 98.3 F 84 20 146/95 98 12/19/21 20:05 12/20/21 08:00 12/20/21 06:52 12/19/21 20:05 12/20/21 12:00 Plan Follow up with: [facility] [Other] - 3-5 Days
--- NOTE | 2021-12-20 15:46 | XRay Report ---
CHEST 2 VIEWS and left lateral decubitus radiograph. INDICATION / CLINICAL INFORMATION: Patient with pneumo and hemothorax. COMPARISON: 12/18/2021 FINDINGS: SUPPORT DEVICES: None. HEART / MEDIASTINUM: Unchanged LUNGS / PLEURA: Right basilar pleural fluid/hemothorax is again noted and appears essentially unchang ed from the prior study. . There appears to be minimal residual right pneumothorax. This appears decr eased in size. ADDITIONAL FINDINGS: No significant additional findings. IMPRESSION: 1. Minimal right pneumothorax appears decreased in size. 2. No other significant change. Signer Name: Bahman Walker MD Signed: 12/20/2021 3:42 PM Workstation Name: [facility]
== END 2021-12-20 17:50 | disposition home or self-care (01) | DRG 200 ==
LOC: ED 23:33 → 4A 12-17 18:36
PROVIDERS: ADMIT Internal Medicine; ATTEND Internal Medicine
DX: J93.83 Other pneumothorax (principal); S22.49XA Multiple fractures of ribs, unspecified side, initial encounter for closed fracture; S22.41XA Multiple fractures of ribs, right side, initial encounter for closed fracture; J94.2 Hemothorax; E66.2 Morbid (severe) obesity with alveolar hypoventilation; M19.90 Unspecified osteoarthritis, unspecified site; Y93.89 Activity, other specified; Y92.89 Other specified places as the place of occurrence of the external cause; Y99.8 Other external cause status; Z68.34 Body mass index [BMI] 34.0-34.9, adult
CPT/HCPCS: 36415; 70450; 71045; 71047; 71250; 71275; 72070; 72100; 72125; 74177; 80053; 81001; 82962; 83690; 84484; 84703; 85025; 85027; 85610; 85730; 93005; G0378; J2270; J2405; J7030; Q9967